=== PATIENT | female | born 1955 | race Caucasian/White ===

== ENCOUNTER 2021-01-06 09:00 | Outpatient (RCR) | payer MEDICARE, OTHER, SELFPAY ==
--- NOTE | 2020-12-16 10:18 | PTOPEVAL ---
PHYSICAL THERAPY EVALUATION AND PLAN OF CARE 12-16-20 Thank you for referring Carolina Zarate to [facility] She is scheduled to be seen for therapy? 2 x/week for 3 weeks. Please review, sign, date and return this plan of care DAYSI. I agree with and certify that the following plan of care is medically necessary. Referring Physician Date Attending Provider: Mercedes Delcid MD *PT Outpatient Evaluation Document 12/16/20 09:05 TOM (Rec: 12/16/20 10:18 TOM [id number]) Assessment Status Evaluation Outpatient Past Medical History Past Medical History Source of Past Medical History Patient Neurological History Hx Neurological Disorders No Significant History Cardiovascular History Hx Hypertension Yes: meds Respiratory History Hx Respiratory Disorders No Significant History Gastrointestinal History Hx Other Gastrointestinal Disorders Yes: rectal polyps- surgery, benign Genitourinary History Hx Bladder Surgery Yes: prolapse uterus surgery Musculoskeletal History Hx Back Pain Yes: recent back pain- to ER, all tests negative, no back pain for past wk Hx Other Musculoskeletal Disorders Yes: R hip pain Endocrine History Hx Other Endocrine Disorders Yes: thyroid nodules-check regularly with , monitoring HEENT History Hx Other HEENT Disorders Yes: hearing aide L ear, wear glasses Reproductive History Hx Hysterectomy Yes Evaluation Information Problem Diagnosis R hip pain and arm weakness Onset April 2020 Subjective Information gradual increase in pain and Query Text:As Reported By Patient/ noticed weakness of hip and Family problems moving hip; no falls or trauma to hip; Diagnostic Tests X-Rays For This Problem Yes: per pt- arthritis of hip Previous Treatments Previous Treatments For This Problem no PT Prior Level of Function Activity Level (Last 3 Months) Occupation retired Activity of Daily Living Ability Independent Indoor/Home Mobility Independent Community Mobility Independent Stairs Ability Independent Functional Cognition (Planning, Shopping Independent , Taking Medications) Cooking Yes Cleaning Yes Laundry Yes Shopping Yes Driving Yes Comments Additional Prior Level of Function due to abdominal surgery--no Comments lifting over 10#; do all home and self care tasks; have problems wit
--- NOTE | 2021-01-06 09:55 | PTOPEVAL ---
PHYSICAL THERAPY DISCHARGE 01-06-21 Refer to the clinical summary below for her status at discharge, compared to the initial evaluation. Discharge PT services. The goals were partially achieved. Thank you for referring Carolina Zarate to [facility].? Please review, sign, date and return this discharge DAYSI. I agree with and certify that the following plan of care is medically necessary. Referring Physician Date Attending Provider: Mercedes Delcid MD *PT Outpatient Discharge Document 01/06/21 09:05 TOM (Rec: 01/06/21 09:55 TOM [id number]) Subjective Information Carolina reports: hip is better, Query Text:As Reported By Patient/ can put on socks easier, Family moving easier and stronger; doing exercises daily; Pain Assessment Timing of Pain Assessment Timing of Pain Assessment Assessment Pain Scale Pain Scale Used Numeric (1 - 10) Self Report Pain Assessment Right Hip(s) Reported Pain Level 2 Radicular Pain Location no pain into R leg Pain Frequency Chronic Other Pain Description pain in groin/anterior hip, fatigue Lowest Pain Intensity 0 Greatest Pain Intensity 7 Pain Score Pain Score 2: Self Report Additional Pain Score Comments WOMAC self assessment score of 24% limitation; tend to notice more pain at the end of the day; discussed rest/activity balance during day; monitor activity level and gradually increase activity as hip tolerates; discussed home treadmill-- have not been using it; educated to increase time as tolerated; stationary bicycle has less stress of WB on hip, to consider recumbant bicycle use for fitness; Interventions Used Interventions Used By Clinicians Education,Exercise Pain Relief Interventions Used By Heat,Inactivity/Rest Patient Other Alleviating Interventions stretching exercises help pain ; no tenderness over R ITB Lower Extremity Range of Motion General Lower Extremity Range of Motion Gross Lower Extremity Range of Motion R hip: flexion to 115' and IR Comments 0'- both increase anterior groin pain; sitting cross leg over other/ hip ER, foot to above L knee Lower Extremity Muscle Strength Testi
== END 2021-01-10 14:49 | disposition home or self-care (01) ==
LOC: ANHPT 09:00
DX: M25.551 Pain in right hip (principal)
CPT/HCPCS: 97110; 97116; 97140; 97161; 97530

== ENCOUNTER 2021-11-07 07:30 | Outpatient (RCR) | payer MEDICARE, SELFPAY ==
--- NOTE | 2021-10-10 08:39 | PTOPEVAL ---
PHYSICAL THERAPY EVALUATION AND PLAN OF CARE Thank you for referring Carolina Zarate to [facility].? The patient is scheduled to be seen for therapy? 2x/week for 4 weeks. Please review, sign, date and return this plan of care DAYSI. I agree with and certify that the following plan of care is medically necessary. Referring Physician Date Provider: Luke Lo Evaluation Outpatient Past Medical History Neurological History Hx Neurological Disorders No Significant History Cardiovascular History Hx Hypertension Yes: meds Respiratory History Hx Respiratory Disorders No Significant History Gastrointestinal History Hx Other Gastrointestinal Disorders Yes: rectal polyps- surgery, benign Genitourinary History Hx Bladder Surgery Yes: prolapse uterus surgery Musculoskeletal History Hx Back Pain Yes: recent back pain- to ER, all tests negative, no back pain for past wk Hx Other Musculoskeletal Disorders Yes: R hip pain Endocrine History Hx Other Endocrine Disorders Yes: thyroid nodules-check regularly with , monitoring HEENT History Hx Other HEENT Disorders Yes: hearing aide L ear, wear glasses Evaluation Information Problem Diagnosis right TRE Onset 09/15/21 Subjective Information States she feels like she is Query Text:As Reported By Patient/ doing very well. She is Family getting better every day. continues to use a walker and continues to take medication scheduled. Feels that when she exercises are pain is less. Self Report Pain Assessment Right Lower Hip(s) Reported Pain Level 1 Pain Description Aching Pain Frequency Acute,Intermittent Lowest Pain Intensity 1 Greatest Pain Intensity 4 Pain Score Pain Score 1: Self Report Interventions Used Interventions Used By Clinicians Exercise Lower Extremity Muscle Strength Testing Hip Strength Left Hip Flexion Strength 4 Good Hip Abduction Strength 3+ Fair + Palpation Assessment Palpation Palpation incision is well healed and dry; there is some thickening of the scar indicating some scar tissue -- instructed her to perform scar massage Gait Assessment Gait Assessment Ambulation Assistive Devices Cane Ambulation Ability Independent Stair Climbing Assessment Stair Climbing Assessment Stair Climbing Assistive Devices Railings Technique Alternating
--- NOTE | 2021-10-26 09:44 | PCPTNOTE ---
Patient called & cancelled scheduled appointment this date due to not feeling well.
--- NOTE | 2021-11-07 08:13 | PTOPEVAL ---
PHYSICAL THERAPY DISCHARGE NOTE Thank you for referring Carolina Zarate to [facility].? Please review, sign, date and return this plan of care DAYSI. I agree with and certify that the following plan of care is medically necessary. Referring Physician Date Attending Provider: Luke Lo Discharge Diagnosis right RTE Onset 09/15/21 Subjective Information Has no pain. Does have a Query Text:As Reported By Patient/ question about when she can Family cross her right ankle over the left knee to put on shoes and socks and we had a discussion about the precautions and that ultimately she needs to have that conversation with her surgeon. Self Report Pain Level 0 Pain Score Pain Score 0: Self Report Lower Extremity Muscle Strength Testing Hip Strength Left Hip Flexion Strength 4+ Good + Hip Extension Strength 4 Good Hip Abduction Strength 4+ Good + Knee Strength Right Knee Flexion Strength 5 Normal Knee Extension Strength 5 Normal Muscle Length Testing Muscle Length Testing Muscle Length Testing Comments short right quadriceps and anterior hip capsule is tight Balance Assessment Anderson Balance Assessment Sitting to Standing Independent w/out Hands Unsupported Stance Ability Safely- 2 minutes Sitting Unsupported, Feet on Floor Safely- 2 minutes Standing to Sitting Safely, Minimal Hand Use Transfer Ability Safely, Minimal Hand Use Unsupported Stance- Eyes Closed Safely, 10 seconds Unsupported Stance- Feet Together Independent, 1 minute Reaching Forward while Standing Confidently, 10 inches ka[place] kura kaupapa maori Object From Floor Independent/Safe Look Behind Shoulder - Standing Shifts Weight Well Turning 360 Degrees Turns Bilateral, < 4 secs Unsupported Stance, Alternating Feet on (I)- 8 Steps in 20 secs Stair Unsupported Tandem Stance Achieves Tandem Unilateral Leg Stance Lifts Leg/Holds 10 secs ANDERSON Balance Evaluation Total Score (/56 56 points) Gait Assessment Gait Assessment Ambulation Assistive Devices None Ambulation Distance 300' Query Text:(Feet) Ambulation Destination In Gym Ambulation Ability Independent Stair Climbing Assessment Stair Climbing Assessment Stair Climbing Assistive Devices None Technique Alternating Steps Stair Climbing Direction Both Up and Down Stair Climbing Ability Independent Ability to Step Over a Curb Independent PT Clinical Summary
== END 2021-11-07 14:24 | disposition home or self-care (01) ==
LOC: ANHPT 07:30
PROVIDERS: PCP Hospitalist
DX: Z47.1 Aftercare following joint replacement surgery (principal); Z96.641 Presence of right artificial hip joint
CPT/HCPCS: 97110; 97162